=== PATIENT | female | born 1970 | race Caucasian/White ===

== ENCOUNTER 2020-02-18 10:37 | Outpatient (REF) | payer BC, SELFPAY ==
--- NOTE | 2020-02-18 10:10 | PAPFT_PTH ---
PATIENT: Margi Zimmer LOC: [facility] U#:[id number] AGE/SX: 49/F ROOM: RE02/18/[address]: Nirali Holt NP : 1970 BED: DIS: 02/18/2020 SPEC #: [id number] RECD: 02/18/20 12:55 STATUS: LINH REDenisha #: [id number] COCO: 02/18/20 10:[address]: Nirali Holt NP DEPT: [facility] [place] Cytology RECD BY: Shruthi Fish ENTERED: 02/18/20 12:55 SP TYPE: PAPFT OTHR DR: Abdiel Monge MD Tissues: 1 - CX/ENDOCX FOR PAP SMEARS Procedures: PAP THIN PREP/UVM Screening HPV DNA PROBE Comments: [id number]
== END 2020-02-18 10:57 ==
LOC: LBN 10:37
PROVIDERS: PCP Family Medicine; Visit Provider Nurse Practitioner Women's Health
DX: Z12.4 Encounter for screening for malignant neoplasm of cervix (principal); Z11.51 Encounter for screening for human papillomavirus (HPV)
CPT/HCPCS: 88142; 87624

== ENCOUNTER 2020-02-27 02:13 | Outpatient (CLI) | payer BC, SELFPAY ==
--- NOTE | 2020-02-27 12:54 | DI.MAMMO_ITS ---
EXAM: MG MAMMO SCREENING CLINICAL HISTORY: screening TECHNIQUE: Mammograms were interpreted according to the usual protocol including computer analysis w [employer] CAD system, tomosynthesis and C-view imaging. COMPARISON: 2012 through 2018. FINDINGS: The breasts are composed of heterogeneously dense fibroglandular densities, Breast Density category C . No suspicious masses or suspicious microcalcifications are seen. No skin thickening or abnormal axillary lymph nodes are seen. There has been no significant change from prior exams. IMPRESSION: BI-RADS Category 1, Negative mammogram. Yearly screening mammography is recommended. Breast Density Category C, heterogeneously Dense. The mammogram demonstrates the patient's breast tissue is dense. Dense breast tissue is very common a nd is not abnormal but dense breast tissue can make it harder to find cancer on a mammogram. Also, de nse breast tissue may increase breast cancer risk. This information about the result of the mammogram report was provided to the patient to raise their awareness. Use this report when you speak with the patient about their risks for breast cancer, which includes their family history. At that time, you may recommend additional screening tests (Ultrasound or MRI) as they might be useful based on their r isk. A negative radiographic report should not delay biopsy if a dominant or clinically suspicious mass is present. Up to ten percent of cancers are not identified on mammography. A negative report may reinforce clinical impression. Adenosis and dense breasts may obscure an underlying neoplasm. False positive reports average 6 to 10%.
== END 2020-02-27 02:33 ==
PROVIDERS: PCP Family Medicine; Visit Provider Nurse Practitioner Family
DX: Z12.31 Encounter for screening mammogram for malignant neoplasm of breast (principal)
CPT/HCPCS: 77063; 77067

== ENCOUNTER 2021-03-04 02:03 | Outpatient (CLI) | payer BC, SELFPAY ==
[2021-03-04 07:39] LABS: Abs Immature Grans 0.01 10^3/uL (0.0-0.06); Absolute Basophil Count 0.04 10^3/uL (0.0-0.2); Absolute Eosinophil Count 0.15 10^3/uL (0.0-0.7); Absolute Lymphocyte Count 1.19 10^3/uL (1.2-3.4); Absolute Monocyte Count 0.38 10^3/uL (0.1-0.8); Absolute Neutrophil Count 2.41 10^3/uL (1.2-6.7); Eosinophils % 3.6; HCT 42.4 % (36.0-46.0); HGB 13.5 g/dL (11.2-15.7); Immature Grans % 0.2; Lymphocytes % 28.5; MCH 31.8 pg (27.0-33.0); MCHC 31.8 % (32.0-36.0); MCV 99.8 fL (80-95); MPV 9.9 fL (8.0-11.0); Monocytes % 9.1; Neutrophils % 57.6; Nucleated RBC 0 %; Platelet Count 158 10^3/uL (130-400); RBC 4.25 10^6/uL (3.93-5.22); RDW-SD 44.1 fL; WBC 4.18 10^3/uL (4.4-10.8)
[2021-03-04 08:31] LABS: ALT 22 U/L (14-59); AST 13 U/L (15-37); Albumin 4.1 g/dL (3.4-5.0); Alkaline Phosphatase 42 U/L (46-116); Anion Gap 6.9 mmol/L (3-11); BUN 21 mg/dL (7-18); Bilirubin, Total 0.5 mg/dL (0.2-1.0); CO2 29.1 mmol/L (21.0-32.0); CREATININE 0.9 mg/dL (0.55-1.02); Calcium 8.8 mg/dL (8.5-10.1); Calculated LDL 70 mg/dL (<100); Chloride 105 mmol/L (98-107); Cholesterol 160 mg/dL (<200); Glucose 80 mg/dL (74-106); HDL Cholesterol 84 mg/dL (40-60); Potassium 4.6 mmol/L (3.5-5.1); Sodium 141 mmol/L (136-145); Total Protein 6.7 g/dL (6.4-8.2); Triglyceride 32 mg/dL (<150)
[2021-03-05 11:17] LABS: Lyme Ab w Rflx to Lyme Confirm Negative (Negative)
== END 2021-03-04 02:04 | disposition home or self-care (01) ==
LOC: LBO 02:03
PROVIDERS: PCP Family Medicine; Visit Provider Family Medicine
DX: Z00.00 Encounter for general adult medical examination without abnormal findings (principal); M70.61 Trochanteric bursitis, right hip; M89.8X8 Other specified disorders of bone, other site; M54.9 Dorsalgia, unspecified; Z13.220 Encounter for screening for lipoid disorders
CPT/HCPCS: 36415; 80053; 80061; 85025; 86618

== ENCOUNTER 2021-09-11 15:13 | Outpatient (REF) | payer BC, SELFPAY ==
[2021-09-13 12:00] LABS: COVID-19 RT-PCR UVMMC Result Positive (Negative)
== END 2021-09-11 15:14 | disposition home or self-care (01) ==
LOC: LBN 15:13
PROVIDERS: PCP Family Medicine; Visit Provider Physician Assistant Medical
DX: Z20.822 Contact with and (suspected) exposure to COVID-19 (principal); J06.9 Acute upper respiratory infection, unspecified
CPT/HCPCS: U0003

== ENCOUNTER → 2022-03-09 02:48 | Outpatient (CLI) | payer BC, SELFPAY ==
--- NOTE | 2022-03-09 11:09 | DI.MAMMO_ITS ---
Exam(s) MAMMO SCREENING EXAM: MAMMO SCREENING CLINICAL HISTORY: screening,z12.39 TECHNIQUE: Mammograms were interpreted according to the usual protocol including computer analysis w [employer] CAD system, tomosynthesis and C-view imaging. COMPARISON: 2012 through 2019 FINDINGS: The breasts are composed of heterogeneously dense fibroglandular densities, Breast Density category C . No suspicious masses or suspicious microcalcifications are seen. No skin thickening or abnormal axillary lymph nodes are seen. There has been no significant change from prior exams. IMPRESSION: BI-RADS Category 1, Negative mammogram. Yearly screening mammography is recommended. Breast Density Category C, heterogeneously Dense. The mammogram demonstrates the patient's breast tissue is dense. Dense breast tissue is very common a nd is not abnormal but dense breast tissue can make it harder to find cancer on a mammogram. Also, de nse breast tissue may increase breast cancer risk. This information about the result of the mammogram report was provided to the patient to raise their awareness. Use this report when you speak with the patient about their risks for breast cancer, which includes their family history. At that time, you may recommend additional screening tests (Ultrasound or MRI) as they might be useful based on their r isk. A negative radiographic report should not delay biopsy if a dominant or clinically suspicious mass is present. Up to ten percent of cancers are not identified on mammography. A negative report may reinforce clinical impression. Adenosis and dense breasts may obscure an underlying neoplasm. False positive reports average 6 to 10%.
== END ==
PROVIDERS: PCP Family Medicine; Visit Provider Family Medicine
DX: Z12.31 Encounter for screening mammogram for malignant neoplasm of breast (principal); R92.8 Other abnormal and inconclusive findings on diagnostic imaging of breast
CPT/HCPCS: 77063; 77067

== ENCOUNTER → 2023-03-14 00:24 | Outpatient (CLI) | payer BC, SELFPAY ==
--- NOTE | 2023-03-14 07:30 | DI.MAMMO_ITS ---
Exam(s) MAMMO SCREENING EXAM: MAMMO SCREENING CLINICAL HISTORY: screening,z12.39. TECHNIQUE: Bilateral full field digital CC and MLO mammographic images were obtained with 3D tomosyn thesis and utilizing computer aided detection (CAD). COMPARISON: Prior mammograms were reviewed. FINDINGS: Fibroglandular tissue is again noted be moderately dense, this somewhat decreasing the sensitivity ma mmogram for finding hidden underlying lesions There are no CAD designations. There are no obvious new spiculated masses nor malignant appearing microcalcification groups. There is no significant architectural distortion nor skin thickening-retraction. IMPRESSION: No radiographic evidence of malignancy. BI-RADS Category 1 - Negative Breast Density - Category C - Heterogeneously dense Breast density Category C or D implies that the patient has dense breast tissue. Dense breast tissue can make it harder to find cancer on a mammogram. Dense breast tissue is also associated with an incr eased risk of breast cancer. This information about the result of the mammogram report was provided to the patient to raise their awareness. Use this report when you speak with the patient about their risks for breast cancer, which includes their family history. At that time, you may recommend additional screening tests (Ultrasoun d or MRI) as these tests may add significant information. A negative radiographic report should not delay biopsy if a dominant or clinically suspicious mass is present. Up to ten percent of cancers are not identified on mammography. A negative report may reinforce clinical impression. Adenosis and dense breasts may obscure an underlying neoplasm. False positive reports average 6 to 10%. Patient will receive a letter notifying them of these results.
== END ==
PROVIDERS: PCP Family Medicine; Visit Provider Family Medicine
DX: Z12.31 Encounter for screening mammogram for malignant neoplasm of breast (principal); R92.333 Mammographic heterogeneous density, bilateral breasts
CPT/HCPCS: 77063; 77067

== ENCOUNTER 2023-09-11 15:45 | Emergency (ER) | payer BC, SELFPAY ==
--- NOTE | 2023-09-11 15:45 | RT.EKG_ITS ---
APPROVED REPORT Exam: Resting ECG Reason for Exam: chest pain Patient Location: E HR:57 bpm ECG Measurements Heart Rate 57 AXIS MA 152 P -37 QRSd 89 QRS 43 QT 409 T 65 QTc 398 Conclusion Sinus bradycardia.. [address] change no stemi
[2023-09-11 15:50] VITALS: BP 125/80; PULSE 67; RESP 16; TEMP 37.1; O2SAT 100
[2023-09-11] MEDS: Aspirin 81 MG CHEW 324 MG CH (16:05)
[2023-09-11 16:11] VITALS: RESP 16
[2023-09-11 16:23] LABS: Abs Immature Grans 0.02 10^3/uL (0.0-0.06); Absolute Basophil Count 0.04 10^3/uL (0.0-0.2); Absolute Eosinophil Count 0.14 10^3/uL (0.0-0.7); Absolute Lymphocyte Count 1.89 10^3/uL (1.2-3.4); Absolute Neutrophil Count 3.23 10^3/uL (1.2-6.7); Basophils % 0.7 %; Eosinophils % 2.4 %; HCT 40.6 % (36.0-46.0); HGB 13.9 g/dL (11.2-15.7); Immature Grans % 0.3 %; MCH 32.2 pg (27.0-33.0); MCHC 34.2 % (32.0-36.0); MCV 94 fL (80-95); MPV 10.1 fL (8.0-11.0); Neutrophils % 56.6 %; Platelet Count 158 10^3/uL (130-400); RBC 4.32 10^6/uL (3.93-5.22); RDW 11.7 % (11.7-14.6); RDW-SD 40.7 fL; WBC 5.72 10^3/uL (4.4-10.8)
[2023-09-11 16:43] LABS: ALT 28 U/L (14-59); AST 16 U/L (15-37); Albumin 4.2 g/dL (3.4-5.0); Alkaline Phosphatase 43 U/L (46-116); Anion Gap 7.7 mmol/L (3-11); BUN 17 mg/dL (7-18); Bilirubin, Total 0.4 mg/dL (0.2-1.0); CO2 30.3 mmol/L (21.0-32.0); Calcium 8.9 mg/dL (8.5-10.1); Chloride 104 mmol/L (98-107); Estimated GFR 68.21 (mL/min/1.73m2); Glucose 97 mg/dL (74-106); Magnesium 1.9 mg/dL (1.8-2.4); NT-proBNP 202 pg/mL (<300); Potassium 3.6 mmol/L (3.5-5.1); Sodium 142 mmol/L (136-145); Troponin I < 50 ng/L (< or =60)
--- NOTE | 2023-09-11 16:45 | DI.RAD_ITS ---
Exam(s) XR CHEST 2V PA LATERAL EXAM: XR CHEST 2V PA LATERAL CLINICAL HISTORY: sob TECHNIQUE: 2D digital imaging was performed of the chest. Two images were obtained. PA and lateral views were obtained. COMPARISON: No exams were available for comparison FINDINGS: MEDIASTINUM: Normal. HEART: Normal. PULMONARY VASCULATURE: Normal. LUNGS: Clear. PLEURAL SPACE: No pleural effusion or pneumothorax. BONE:Within normal limits for the patient's age. OTHER FINDINGS:Normal. IMPRESSION: No acute pulmonary findings. DATA REPOSITORY: RADIATION DOSE DELIVERED:
--- NOTE | 2023-09-11 17:40 | DI.VRAD_ITS ---
PROCEDURE INFORMATION: Exam: XR Chest Exam date and time: 09/11/2023 5:09 PM Age: 52 years old Clinical indication: Shortness of breath; Patient HX: SOB TECHNIQUE: Imaging protocol: Radiologic exam of the chest. Views: 2 views. Total images: 2 COMPARISON: No relevant prior studies available. FINDINGS: Lungs: Lungs are clear without consolidation. No vascular congestion. Pleural spaces: No pleural effusion or pneumothorax. Heart/Mediastinum: Unremarkable. Bones/joints: Unremarkable. IMPRESSION: No acute findings. Dictated and Authenticated by: Brent Boyle MD. Ordering:[facility] Radha Azul MD
[2023-09-11 18:21] LABS: D-Dimer 287 ng/mlFEU (<500)
--- NOTE | 2023-09-11 19:23 | ED.GENADUL_ITS ---
Discharge Plan Disposition Patient Disposition: Home Discharge Details Clinical Impression: Acute pain of right lower extremity, Chest pain Primary Care Provider: [place] ED Provider: Wandy Garcia Home Meds and New Rx's Prescriptions: No Action Mirena 1 EACH intrauterine device 1 ea Intrauterine ONCE Qty: 1 methocarbamol [Robaxin-750] 750 mg tablet 750 mg PO QID PRN (Reason: back spasm) Qty: 40 0RF Discharge Instructions Instructions: Chest Pain (ED) Additional Instructions: LAB WORK UNREMARKABLE FOR ACUTE PROCESS TODAY PLEASE FOLLOW UP WITH PCP IF SYMPTOMS PERSIS HPI General Date/Time Provider Initiated Documentation: 09/11/23 15:57 . Limitations to Documentation: no limitations . Information obtained by: patient . HPI Narrative: 52-year-old female with out significant past medical history presents for evaluation of right upper leg pain. She reports that she has been having a deep pulling sensation in her leg. She localizes the sensation to the upper medial right thigh. She states that she has had this sensation prior to previous varicose veins ablations. She reports that today she started feeling funny. Having some tightness in her chest with some shortness of breath and some lightheadedness with standing. She thought maybe she was having some palpitations as well. Symptoms have resolved. She states that she felt better when she rested. Has not had the symptoms before. Reports that about a month ago she did a 3-day car trip, but otherwise no recent surgeries, does not smoke, does have a Mirena IUD. Never had a blood clot before. Does have extensive varicose veins. Related Data Home Medications Medication Instructions Recorded Confirmed levonorgestrel 21 mcg/24 hr (up to 1 ea intrauterine ONCE #1 implant 10/31/17 09/11/23 8 years) 52 mg intrauterine device (Mirena) methocarbamol 750 mg tablet 750 mg PO QID PRN back spasm #40 02/14/20 09/11/23 (Robaxin-750) tabs Previous Rx's Medication Instructions Recorded methocarbamol 750 mg tablet 750 mg PO QID PRN back spasm #40 02/14/20 (Robaxin-750) tabs Allergies Allergy/AdvReac Type Severity Reaction Status Date / Time No Known Drug Allergies Allergy Other (See Verified 09/11/23 16:14 Comment) General Stated Complaint: Chest Pain MARTI: 3 Exam Narrative Exam Narrative: Review of Systems: All systems reviewed & are unremarkable except as noted in HPI and below Well-developed, no acute distress NCAT PERRL, normal conjunctiva RRR, no murmur, no chest wall tenderness Unlabored respiratory effort, clear bilaterally Nondistended abdomen , nontender Extremities w/o deformity, no cyanosis, no edema Left leg varicose veins very prominent, right leg and right thigh without any obvious abnormality No calf tenderness No rashes or lesions. no focal neurologic deficits Appropriate mood and affect Course Vital Signs Vital signs: Vital Signs Temperature 37.1 C 09/11/23 15:50 Pulse 67 09/11/23 15:50 Respiratory Rate 16 09/11/23 15:50 Blood Pressure 125/80 09/11/23 15:50 Pulse Oximetry 100 09/11/23 15:50 Temperature 37.1 C 09/11/23 15:50 Temperature Source Tympanic 09/11/23 15:50 Pulse 67 09/11/23 15:50 Respiratory Rate 16 09/11/23 16:11 Respiratory Effort Normal 09/11/23 16:11 Respiratory Depth Normal 09/11/23 16:11 Respiratory Pattern Normal 09/11/23 16:11 Blood Pressure 125/80 09/11/23 15:50 Pulse Oximetry 100 09/11/23 15:50 Oxygen Delivery Method Room Air 09/11/23 15:50 Oxygen Flow Rate 0 09/11/23 15:50 Pain Level 0 09/11/23 15:50 Lab/Test Results Lab/Test Results: Laboratory Tests Range/Units 09/11/23 16:09 WBC (4.4-10.8) 10^3/uL 5.72 RBC (3.93-5.22) 10^6/uL 4.32 Hgb (11.2-15.7) g/dL 13.9 Hct (36.0-46.0) % 40.6 MCV (80-95) fL 94 MCH (27.0-33.0) pg 32.2 MCHC (32.0-36.0) % 34.2 RDW (11.7-14.6) % 11.7 Plt Count (130-400) 10^3/uL 158 MPV (8.0-11.0) fL 10.1 Immature Gran % % 0.3 Neutrophils % % 56.6 Lymphocytes % % 33.0 Monocytes % % 7.0 Eosinophils % % 2.4 Basophils % % 0.7 Nucleated RBC % (0.0-0.3) % 0.0 Absolute Neutrophils (1.2-6.7) 10^3/uL 3.23 Absolute Lymphocytes (1.2-3.4) 10^3/uL 1.89 Absolute Monocytes (0.1-0.8) 10^3/uL 0.40 Absolute Eosinophils (0.0-0.7) 10^3/uL 0.14 Absolute Basophils (0.0-0.2) 10^3/uL 0.04 D-Dimer (<500) ng/mlFEU 287 Sodium (136-145) mmol/L 142 Potassium (3.5-5.1) mmol/L 3.6 Chloride (98-107) mmol/L 104 Carbon Dioxide (21.0-32.0) mmol/L 30.3 Anion Gap (3-11) mmol/L 7.7 BUN (7-18) mg/dL 17 Creatinine (0.55-1.02) mg/dL 1.0 Est GFR (CKD-EPI 2020) (mL/min/1.73m2) 68.21 Glucose (74-106) mg/dL 97 Calcium (8.5-10.1) mg/dL 8.9 Magnesium (1.8-2.4) mg/dL 1.9 Total Bilirubin (0.2-1.0) mg/dL 0.4 AST (15-37) U/L 16 ALT (14-59) U/L 28 Alkaline Phosphatase (46-116) U/L 43 L Troponin I (< or =60) ng/L < 50 NT-Pro-B Natriuret Pep (<300) pg/mL 202 Total Protein (6.4-8.2) g/dL 7.0 Albumin (3.4-5.0) g/dL 4.2 Medical Decision Making Emergent evaluation of chest discomfort. Initial differential includes ACS, dysrhythmia, low suspicion for DVT EKG without acute ischemic changes. Vital signs stable. Essentially asymptomatic at this time. Blood work obtained. CBC unremarkable. D-dimer is negative, further supporting a low suspicion for concerns of DVT or PE. CMP without significant abnormalities. BNP is not elevated. First troponin negative. Chest x-ray without concerning abnormalities. Second trop negative. no emergent conditions identified. Recommend close f/u with PCP . return precautions advised. Medical Records Medical records reviewed: Yes I reviewed the patient's medical records. Lab Data Lab results reviewed: Yes I reviewed the patient's lab results. Quality:SDOH Health Related Social Needs: No Data to Display PFSH All Active Problems (Updated 09/11/23 @ 19:45 by Wandy Garcia MD) Chest pain (Acute) Acute pain of right lower extremity (Acute) Fibrocystic disease of breast (Acute 08/21/13) IUD (intrauterine device) in place (Acute) Back pain (Acute) Medical History Hx of varicose veins h/o ablation. Family History Father Parkinson's disease Sister Depression Thyroid disease Mother Essential hypertension Sister Thyroid cancer Thyroid disease Grandfather , 70's Neoplasm LUNG Lung cancer Grandfather Neoplasm LUNG Grandmother Heart disease Social History Smoking/Tobacco Use Status: Never Second Hand Exposure: No Smoking risk assessment performed?: Yes Alcohol Intake: current Alcohol Intake frequency: a few times a week Alcohol type: beer and wine Drug use: Never Adopted: No Caregiver/Support person: No Foster care: No Household members: spouse and children Housing: house Number of Children: 1 Communication Needs: None Education Level: college Details: BS in animal science Do you need help understanding health information?: Never 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 Pets and animals: Yes Pets and animals: cat(s), dog(s) and horse(s) Sexually active: Yes Do you think of yourself as: straight/heterosexual Current gender identity: female What is your relationship status?: How often do you talk on the phone with friends or family?: once per week How often do you get together with friends or relatives?: twice per week How often do you attend advent or mormon services?: 1-3 times per year Do you belong to any clubs or organized social groups?: yes Panel score (0-1 are the most socially isolated patients): 3 What type of physical activity do you participate in: walking and other Details: Horse riding Duration: 45-60 minutes/day Livier/Catholic: Non sabianism Special livier needs: No Agree to transfusion: Yes Seatbelt use: always Helmet use: Yes Helmet use: always Drive intox or ride w/intox class c truck driver: No Water heater temp set <120 deg: Yes Working smoke detector in home: Yes Fire extinguisher in home: No Carbon monox detector in home: Yes Firearms in home: No Do you feel safe at home: Yes Do you feel safe in your relationship?: Yes Female Reproductive History Menstrual control method: progestin IUCD History History 1 Para 1 Hx # Term Pregnancies Multiple births Hx # Pregnancies Ectopic pregnancies AB induced Hx Number of Living Children AB spontaneous
[2023-09-11 19:26] LABS: Troponin I < 50 ng/L (< or =60)
[2023-09-11 19:57] VITALS: BP 136/58; PULSE 62; RESP 16; TEMP 36.9; O2SAT 100
== END 2023-09-11 19:57 | disposition home or self-care (01) ==
PROVIDERS: Emergency Provider Emergency Medicine; PCP Family Medicine
DX: R06.02 Shortness of breath (principal); R07.9 Chest pain, unspecified; M79.604 Pain in right leg
CPT/HCPCS: 80053; 93005; 99283; 71046; 83735; 83880; 84484; 85025; 85379; 93010

== ENCOUNTER 2024-03-06 15:25 | Outpatient (REF) | payer BC, SELFPAY ==
--- NOTE | 2024-03-06 15:05 | PAPFT_PTH ---
PATIENT: Margi Zimmer LOC: [facility] U#:[id number] AGE/SX: 53/F ROOM: RE03/06/[address]: Nirali Holt NP : 1970 BED: DIS: 03/06/2024 SPEC #: [id number] RECD: 03/06/24 17:52 STATUS: LINH REQ #: [id number] COCO: 03/06/24 15:[address]: Nirali Holt NP DEPT: [facility] Cytology RECD BY: Shruthi Fish ENTERED: 03/06/24 17:53 SP TYPE: PAPFT [place] DR: [place] Tissues: 1 - CX/ENDOCX FOR PAP SMEARS Procedures: PAP THIN PREP/UVM Screening HPV DNA PROBE Comments: [id number] (HPV 16 & 18/45)
== END 2024-03-06 15:26 | disposition home or self-care (01) ==
LOC: LBN 15:25
PROVIDERS: PCP Family Medicine; Visit Provider Nurse Practitioner Women's Health
DX: Z12.39 Encounter for other screening for malignant neoplasm of breast (principal); N91.2 Amenorrhea, unspecified; Z01.419 Encounter for gynecological examination (general) (routine) without abnormal findings; Z97.5 Presence of (intrauterine) contraceptive device; Z12.4 Encounter for screening for malignant neoplasm of cervix; Z12.31 Encounter for screening mammogram for malignant neoplasm of breast
CPT/HCPCS: 88142; 87624

== ENCOUNTER 2024-03-19 03:03 | Outpatient (CLI) | payer BC, SELFPAY ==
--- NOTE | 2024-03-19 13:25 | DI.MAMMO_ITS ---
Exam(s) MAMMO SCREENING EXAM: MAMMO SCREENING CLINICAL HISTORY: screening TECHNIQUE: Mammograms were interpreted according to the usual protocol including computer analysis w [employer] CAD system, tomosynthesis and C-view imaging. COMPARISON: 2015 through 2022 FINDINGS: The breasts are composed of heterogeneously dense fibroglandular densities, Breast Density category C . No suspicious masses or suspicious microcalcifications are seen. No skin thickening or abnormal axillary lymph nodes are seen. There has been no significant change from prior exams. IMPRESSION: BI-RADS Category 1, Negative mammogram. Yearly screening mammography is recommended. Breast Density Category C, heterogeneously Dense. The mammogram demonstrates the patient's breast tissue is dense. Dense breast tissue is very common a nd is not abnormal but dense breast tissue can make it harder to find cancer on a mammogram. Also, de nse breast tissue may increase breast cancer risk. This information about the result of the mammogram report was provided to the patient to raise their awareness. Use this report when you speak with the patient about their risks for breast cancer, which includes their family history. At that time, you may recommend additional screening tests (Ultrasound or MRI) as they might be useful based on their r isk. A negative radiographic report should not delay biopsy if a dominant or clinically suspicious mass is present. Up to ten percent of cancers are not identified on mammography. A negative report may reinforce clinical impression. Adenosis and dense breasts may obscure an underlying neoplasm. False positive reports average 6 to 10%.
== END 2024-03-19 03:23 ==
LOC: DI 03:04
PROVIDERS: PCP Family Medicine; Visit Provider Nurse Practitioner Women's Health
DX: Z12.31 Encounter for screening mammogram for malignant neoplasm of breast (principal); R92.333 Mammographic heterogeneous density, bilateral breasts; R92.323 Mammographic fibroglandular density, bilateral breasts
CPT/HCPCS: 77063; 77067

== ENCOUNTER 2025-02-28 09:11 | Outpatient (CLI) | payer BC, SELFPAY ==
[2025-02-28 14:35] LABS: Anion Gap 8.5 mmol/L (3-11); BUN 18 mg/dL (7-18); CO2 31.5 mmol/L (21.0-32.0); Calcium 9.4 mg/dL (8.5-10.1); Calculated LDL 94 mg/dL (<100); Chloride 102 mmol/L (98-107); Cholesterol 201 mg/dL (<200); Estimated GFR 88.05 (mL/min/1.73m2); Glucose 78 mg/dL (74-106); HDL Cholesterol 94 mg/dL (>or=50); Potassium 4.0 mmol/L (3.5-5.1); Sodium 142 mmol/L (136-145); Triglyceride 69 mg/dL (<150)
[2025-03-01 09:24] LABS: HIV-1/2 Ag & Ab Screen Negative (Negative)
[2025-03-03 11:42] LABS: Hepatitis C Ab w Rflx HCV PCR Negative (Negative)
== END 2025-02-28 09:12 | disposition home or self-care (01) ==
LOC: LOS 09:12
PROVIDERS: PCP Family Medicine; Visit Provider Family Medicine
DX: Z11.59 Encounter for screening for other viral diseases (principal); Z11.4 Encounter for screening for human immunodeficiency virus [HIV]; Z13.6 Encounter for screening for cardiovascular disorders; Z13.1 Encounter for screening for diabetes mellitus
CPT/HCPCS: 36415; 80048; 80061; 86803; 87389

== ENCOUNTER → 2025-03-21 03:06 | Outpatient (CLI) | payer BC, SELFPAY ==
--- NOTE | 2025-03-21 07:15 | DI.MAMMO_ITS ---
Exam(s) MAMMO SCREENING EXAM: MAMMO SCREENING CLINICAL HISTORY: screening,Z12.39. TECHNIQUE: Bilateral full field digital CC and MLO mammographic images were obtained with 3D tomosynthesis and utilizing computer aided detection (CAD). COMPARISON: Prior mammograms were reviewed. FINDINGS: There has been no significant change in the appearance and distribution of the fibroglandular tissue which is again noted to be heterogeneously dense.. There are no obvious new spiculated masses nor new malignant appearing microcalcification groups. There is no significant architectural distortion nor skin thickening-retraction. IMPRESSION: Dense bilateral fibroglandular tissue. No obvious radiographic evidence of malignancy. BI-RADS Category 1 - Negative Breast Density - Category C - The breast are heterogeneously dense, which may obscure small masses. Breast density Category C or D implies that the patient has dense breast tissue. Dense breast tissue can make it harder to find cancer on a mammogram. Dense breast tissue is also associated with an increased risk of breast cancer. This information about the result of the mammogram report was provided to the patient to raise their awareness. Use this report when you speak with the patient about their risks for breast cancer, which includes their family history. At that time, you may recommend additional screening tests (Ultrasound or MRI) as these tests may add significant information. A negative radiographic report should not delay biopsy if a dominant or clinically suspicious mass is present. Up to ten percent of cancers are not identified on mammography. A negative report may reinforce clinical impression. Adenosis and dense breasts may obscure an underlying neoplasm. False positive reports average 6 to 10%. Patient will receive a letter notifying them of these results.
== END ==
LOC: DI 03:06
PROVIDERS: PCP Family Medicine; Visit Provider Family Medicine
DX: Z12.31 Encounter for screening mammogram for malignant neoplasm of breast (principal); R92.323 Mammographic fibroglandular density, bilateral breasts
CPT/HCPCS: 77063; 77067